=== PATIENT | male | born 1990 | race Caucasian/White ===

== ENCOUNTER 2023-01-13 09:12 | Outpatient (CLI) | payer OTHER ==
--- NOTE | 2023-01-13 15:13 | MRI Report ---
PROCEDURE: KNEE WO - RT INDICATIONS: RIGHT KNEE PAIN TECHNIQUE: Noncontrast sagittal PD fast spin echo and T2 fast spin echo with fat saturation, sagittal 3-D gradie nt sequence with fat saturation; coronal T1 spin echo and PD fast spin echo with fat saturation, and axial PD fast spin echo with fat saturation through the knee. COMPARISON: None. FINDINGS: Image quality: Excellent. Menisci: The medial and lateral menisci demonstrate normal morphology and internal signal. The meni scal root ligaments appear intact. Cruciate ligaments: The anterior cruciate ligament is thickened with intrasubstance T2 hyperintense signal. The posterior cruciate ligament is intact. Medial structures: The medial collateral ligament appears intact. The posterior oblique ligament, s emimembranosus tendon insertions, and oblique popliteal ligament, and meniscocapsular junction appear intact. Visualized portions of the pes anserinus tendons appear normal. No abnormal bursal fluid. Lateral structures: The lateral collateral ligament, long and short heads of the biceps femoris tend on appear intact. The popliteus tendon appears normal; the popliteofibular ligament appears intact. Iliotibial band appears normal. Anterior structures: Distal quadriceps tendinosis at its superior patellar insertion is seen. Proxima l patella tendinosis at its inferior patella insertion is also noted. Patellar alignment is normal. No femoral trochlear dysplasia or ventral trochlear prominence. No edema in the infrapatellar fat pa d. Bones and cartilage: No bone marrow contusions or fractures. The cartilage of the medial and latera l femorotibial compartments, as well as the patellofemoral compartment, appears normal in thickness. Joint space: There is small knee joint fluid. No Avila's cyst. Normal appearing synovial plicae ar e incidentally noted. IMPRESSION: 1. No evidence of focal meniscal tear. 2. Mildly thickened ACL suggestive of low-grade intrasubstance partial thickness tear. No ACL rupture . The PCL is intact. 3. Distal quadriceps tendinosis and proximal patella tendinosis. No tendon rupture. 4. No marrow edema. No fracture or dislocation. Articulating cartilages are intact. Small joint effus ion, no gross loose bodies. Reviewed by: Aj Petersen MD on 01/13/2023 3:12 PM PDT Approved by: Aj Petersen MD on 01/13/2023 3:12 PM PDT Station ID: [id number]
== END 2023-01-13 09:13 | disposition home or self-care (01) ==
LOC: DI 09:12
PROVIDERS: ATTEND General Practice
DX: M67.961 Unspecified disorder of synovium and tendon, right lower leg (principal); M25.461 Effusion, right knee